=== PATIENT | female | born 1990 | race Asian ===

== ENCOUNTER 2018-11-29 05:34 | Inpatient (IN) | payer BC ==
[~2018-11-29] VITALS: Ht 160 cm; Wt 60.3 kg
[2018-11-29 05:55] VITALS: Ht 160 cm; Wt 60.3 kg
[2018-11-29] MEDS ORDERED: PREN1TAB91 PO (06:00)
[2018-11-29] MEDS ORDERED: OXYTOCIN 30 UNITS/LR 500 ML IV SCH ×2 (06:00→09:55)
[2018-11-29] MEDS ORDERED: FOLI0.4T2 PO (06:00)
[2018-11-29] MEDS ORDERED: MISOPROSTOL 200 MCG TAB PR PRN ×2 (06:00→10:00)
[2018-11-29] MEDS ORDERED: CEFAZOLIN 2 GM/50 ML (PMX) 50 ML IVPB SCH (06:00)
[2018-11-29] MEDS ORDERED: METHYLERGONOVINE 0.2 MG INJ IM PRN ×2 (06:00→10:00)
[2018-11-29] MEDS ORDERED: CARBOPROST 250 MCG INJ IM PRN ×2 (06:00→10:00)
[2018-11-29] MEDS ORDERED: OXYTOCIN 30 UNITS/LR 500 ML IV PRN ×2 (06:00→10:00)
[2018-11-29] MEDS ORDERED: CITRACAL PO (06:07)
[2018-11-29] MEDS: LACTATED RINGER'S 1,000 ML IV SCH ×3 (06:25→22:51)
--- NOTE | 2018-11-29 08:16 | PREAC ---
Date/Time of Note Date/Time of Note DATE: 11/29/18 TIME: 08:15 Anesthesia Eval and Record Evaluation Time Pre-Procedure Interview DATE: 11/29/18 TIME: 08:15 Age 28 Sex female NPO: 8 hrs Preoperative diagnosis BREECH iup Planned procedure C SECTION Past Medical History Past Medical History: Includes : : (1) Surgery & Anesthesia Issues No known issue Meds Anticoagulation: No Beta Han within 24 hr: No Reason Beta Han not given: Pt. not on B-Han Reported Medications Calcium Citrate* (Citracal*) 950 Mg Tab, 950 MG PO DAILY, TAB 11/29/18 Folic Acid* (Folic Acid*) 0.4 Mg Tablet, 0.4 MG PO DAILY, TAB 11/29/18 Pnv95/Ferrous Fumarate/FA ( Formula Tablet) 1 Each Tablet, 1 EACH PO DAILY, TAB 11/29/18 Current Medications Lactated Ringer's 1,000 ml @ 125 mls/hr Q8H IV Last administered on 11/29/18at 07:11; Admin Dose 125 MLS/HR; Start 11/29/18 at 05:56 Cefazolin Sodium/ Dextrose 50 ml @ 100 mls/hr ONCE IVPB ; Start 11/29/18 at 06 :00 Oxytocin/Lactated Ringer's 500 ml @ 125 mls/hr POST IV ; Start 11/29/18 at 06:00 Oxytocin/Lactated Ringer's 500 ml @ 0 mls/hr ONCE PRN IV .VAGINAL BLEEDING; Start 11/29/18 at 06:00 Methylergonovine Maleate (Methergine) 0.2 mg ONCE PRN IM .VAGINAL BLEEDING; Start 11/29/18 at 06:00 Carboprost Tromethamine (Hemabate) 250 mcg ONCE PRN IM .VAGINAL BLEEDING; Start 11/29/18 at 06:00 Misoprostol (Cytotec) 1,000 mcg ONCE PRN IA .VAGINAL BLEEDING; Start 11/29/18 at 06:00 Meds reviewed: Yes Allergies Coded Allergies: No Known Allergy (Unverified , 11/29/18) Allergies Reviewed: Yes Labs/Studies Labs Reviewed: Reviewed by anesthesiologist Result Diagram: 11/29/18600 Laboratory Tests 11/29/18 06:01 Blood Bank Test 11/29/18 06:01 Antibody Screen NEGATIVE Blood Type A POSITIVE Rh Immune Globulin Candidate NO test: Positive Studies: ECG (N/A), CXR (N/A) Pre-procedure Exam Airway: Adequate mouth opening Mallampati: Mallampati I Teeth: Normal Lung: Normal Heart: Normal ASA Physical Status ASA physical status: 3 Emergency: None Planned Anesthetic Neuraxial: Epidural Pre-operative Attestations Prior to commencing anesthesia and surgery, the patient was re-evaluated, there was verification of: *The patient's identity *The results of appropriate recent lab work and preoperative vital signs *The above evaluation not changing prior to induction *Anesthetic plan, risk benefits, alternative and complications discussed with pa tient/family; questions answered; patient/family understands, accepts and wishes to proceed. GAIL MANRIQUEZ MD Nov 29, 2018 08:16
[2018-11-29] MEDS ORDERED: CITRIC ACID/NA CITRATE 30 ML CUP PO ONE (08:30)
[2018-11-29] MEDS ORDERED: morphine SULFATE/PF (10 MG/10 ML) INJ ONE (08:39)
[2018-11-29] MEDS ORDERED: KETOROLAC 30 MG INJ ONE ×2 (08:39→09:30)
[2018-11-29] MEDS ORDERED: METOCLOPRAMIDE 10 MG INJ ONE (08:39)
[2018-11-29] MEDS ORDERED: OXYTOCIN 30 UNITS/LR 500 ML IV ONE ×2 (08:39→09:51)
[2018-11-29] MEDS ORDERED: ONDANSETRON 4 MG INJ ONE (08:39)
[2018-11-29] MEDS ORDERED: EPHEDrine SULFATE 50 MG/5 ML SYG ONE (09:04)
[2018-11-29] MEDS ORDERED: FENTAnyl 50 MCG/ML VIAL ONE (09:30)
[2018-11-29] MEDS ORDERED: LANOLIN HPA 1 PKT TOP PRN (10:00)
[2018-11-29] MEDS ORDERED: OXYCODONE/ACETAMINOPHEN (5/325) TAB PO PRN (10:00)
[2018-11-29] MEDS ORDERED: NACL 0.9% 3 ML SYG IV SCH (10:00)
--- NOTE | 2018-11-29 10:01 | OPR ---
Operative Report Planned Procedure Procedure date Nov 29, 2018 Procedure(s) Primary Performed by see signature line Front Office Attendant: RAJAT BENDER MD Anesthesiologist: GAIL MANRIQUEZ MD Pre-procedure diagnosis IUP at 39w 4d. Breech [id number] Anesthesia Type: Fbazr4m spinal Post-Procedure Post-procedure diagnosis Same with a complete uterine septum. Findings Viable baby girl weighing 3020 grams or 6# 11 oz, 19.5" long, and with Apgars of 9/9, Estimated Blood Loss: 400 - 500 mls Specimen(s) none Grafts/Implant(s) none Complication(s) none Pt Condition post procedure: stable Disposition: PACU Procedure Description Under satisfactory spinal anesthesia, the patient was prepped and draped and placed in a supine position, tilted to the left. Pfannenstiel incision was made, carried through the subcutaneous tissue. Bleeders brought under control with electrocautery. Fascia incised to the length of the incision. Rectus muscles from the fascia, divided midline. Peritoneum exposed, entered through a transverse incision. Transverse incision was made in the lower segment of the uterus. Amniotic sac ruptured. Clear amniotic fluid noted. Legs were delivered first until the buttocks could be delivered. The baby was then delivered to the shoulders and the arms were delivered. The head was delivered easily with fundal pressure. The mouth and nares were bulb suctioned. The cord was doubly clamped and cut. The baby was brought to the warmer and the team for immediate attention. A cord blood collection was then collected using sterile technique with only a small amount of blood retrieved. The placenta was delivered manually intact and the traditional cord blood was then collected. The uterus was wrapped estela moist lap and the uterine cavity was cleaned with a dry lap. Uterus closed in 2 layers using #1 chromic in continuous fashion. Peritoneal cavity irrigated with warm saline. Sponge, needle and instrument count reported to be correct. Abdominal peritoneum closed with 2-0 Chromic continuously. Rectus muscle approximated with the same suture. Fascia closed with 0-Vicryl. The subcutaneous tissue was irrigated and closed with 2-0 Chromic and skin was closed with 3-0 Monocryl in a subcuticular stitch. Steristrips with Mastosol were placed. Estimated blood loss 500 mL. Urine was clear. BARBARA MILLS MD Nov 29, 2018 10:01
[2018-11-29] MEDS ORDERED: KETOROLAC 30 MG INJ IV PRN (10:30)
[2018-11-29] MEDS ORDERED: ONDANSETRON 4 MG INJ IV PRN ×2 (10:30)
[2018-11-29] MEDS ORDERED: DIPHENHYDRAMINE 50 MG INJ IV PRN ×2 (10:30)
[2018-11-29] MEDS ORDERED: NALOXONE (0.4 MG/ML) INJ IV PRN (10:30)
[2018-11-29] MEDS ORDERED: FENTAnyl 50 MCG/ML VIAL IV PRN ×3 (10:30)
[2018-11-29] MEDS ORDERED: morphine 2 MG INJ IV PRN ×3 (10:30)
[2018-11-29] MEDS ORDERED: morphine (1 MG/ML) 10ML SYRINGE IV PRN ×3 (10:30)
[2018-11-29 13:00] VITALS: BP 95/53; PULSE 65; RESP 18
[2018-11-29 14:30] VITALS: BP 101/58; PULSE 69; RESP 12
--- NOTE | 2018-11-29 14:54 | HP ---
Date/Time of Note Date/Time of Note DATE: 11/29/18 TIME: 14:51 OB - History Hx of Present Free Text/Dictation 28 y.o. G1 with an IUP at 40w 4d with a baby in persistent breech and a known uterine septum. The baby is very clearly on the left side. She has a scheduled primary today. Last Menstrual Period: Feb 25, 2018 Estimated Due Date: Dec 02, 2018 : 1 Para: 0 Care: Good Care Ultrasounds: Normal mid trimester US Obstetrical Complications: None Medical Complications: None Other Concerns: PMHx: none. PSHx: none. NKDA. Past Family/Social History * Past Medical, Surgical, Family and Obstetric Histories reviewed from chart. Blood Type: A+ Rubella: immune RPR/VDRL: Negative GBS Status: Positive HBsAG: Negative OB Admission Exam Vital Signs Vital Signs Vital Signs Date Temp Pulse Resp B/P (MAP) Pulse Ox O2 O2 Flow FiO2 Time Delivery Rate 11/29/18 98.2 65 18 95/53 (67) Room Air 13:00 Physical Exam HEENT: WNL Heart: Rhythm Normal Lungs: Clear Abdomen: WNL Extremities: Normal Reflexes: Normal Cervical Dilatation: None Effacement: 50% Station: -2 Membranes: Intact Amniotic Fluid: Clear Heart Rate: 140's Decelerations: No Decelerations Varibility: Moderate Contractions on Admission: >10 Minutes Apart Intensity: Mild Last 72 hours Lab Results CBC & BMP 11/29/18 06:01 OB Assessment/Plan Reason for admission: section Other Assessment: Breech Plan: Section BARBARA MILLS MD Nov 29, 2018 14:54
[2018-11-29 16:00] VITALS: BP 103/54; PULSE 70; RESP 16
[2018-11-29] MEDS: KETOROLAC 30 MG INJ IV PRN (18:06)
[2018-11-29 19:50] VITALS: BP 98/59; PULSE 65; RESP 19
--- NOTE | 2018-11-30 01:00 | PAC ---
Date/Time of Note Date/Time of Note DATE: 11/30/18 TIME: 01:00 Post-Anesthesia Notes Post-Anesthesia Note Last documented vital signs Vital Signs Date Temp Pulse Resp B/P (MAP) Pulse Ox O2 O2 Flow FiO2 Time Delivery Rate 11/29/18 98.8 65 19 98/59 (72) 97 Room Air 19:50 Activity: WNL Respiratory function: WNL Cardiovascular function: WNL Mental status: Baseline Pain reasonably controlled: Yes Hydration appropriate: Yes Nausea/Vomiting absent: No GAIL MANRIQUEZ MD Nov 30, 2018 01:00
--- NOTE | 2018-11-30 01:05 | OPPN ---
Date/Time of Note Date/Time of Note DATE: 11/30/18 TIME: 01:03 Anesthesia Follow up Anesthesia Follow up Last documented vital signs Vital Signs Date Temp Pulse Resp B/P (MAP) Pulse Ox O2 O2 Flow FiO2 Time Delivery Rate 11/29/18 98.8 65 19 98/59 (72) 97 Room Air 19:50 Respiratory function: WNL Cardiovascular function: WNL Comments A 28 year old female s/p spinal , duramorph for post op pain, POD# 1 is doing fine. Pain is controlled, no itching, headache, N/V, neural deficit. GAIL MANRIQUEZ MD Nov 30, 2018 01:05
[2018-11-30 04:00] VITALS: BP 100/58; PULSE 63; RESP 19
[2018-11-30] MEDS: LACTATED RINGER'S 1,000 ML IV SCH (04:51)
[2018-11-30] MEDS: KETOROLAC 30 MG INJ IV PRN (04:51)
[2018-11-30 07:40] VITALS: BP 118/70; PULSE 70; RESP 18
[2018-11-30] MEDS: IBUPROFEN 800 MG TAB PO SCH ×2 (14:28→21:51)
[2018-11-30 16:10] VITALS: BP 96/48; PULSE 61; RESP 18
[2018-11-30 19:30] VITALS: BP 91/55; PULSE 70; RESP 18
--- NOTE | 2018-11-30 22:12 | QN ---
Documentation Comment POD#1 Pt feels well. Just got up to walk for the 1st time and it was slow going. w/o difficulty. +flatus but no BM. T=98.3 BP 91/55 Fundus firm. Dressing clean, dry and intact. Lochia minimal. Ext NT, no edema. WBC 11.5 Hgb 11.1 Plts 205 P: Continue care. Advance diet to regular tomorrow. Plan d/c 12/02. BARBARA MILLS MD Nov 30, 2018 22:12
[2018-12-01 04:00] VITALS: BP 100/65; PULSE 65; RESP 18
[2018-12-01] MEDS: IBUPROFEN 800 MG TAB PO SCH ×3 (06:32→21:26)
[2018-12-01 08:20] VITALS: BP 101/53; PULSE 72; RESP 18
[2018-12-01] MEDS: OXYCODONE/ACETAMINOPHEN (5/325) TAB PO PRN (14:37)
[2018-12-01 16:15] VITALS: BP 111/59; PULSE 59; RESP 16
[2018-12-01 19:10] VITALS: BP 111/63; PULSE 67; RESP 18
[2018-12-02] MEDS: OXYCODONE/ACETAMINOPHEN (5/325) TAB PO PRN ×2 (00:17→12:32)
[2018-12-02 04:00] VITALS: BP 98/63; PULSE 62; RESP 18
[2018-12-02] MEDS: IBUPROFEN 800 MG TAB PO SCH ×3 (05:28→22:12)
[2018-12-02 09:00] VITALS: BP 106/61; PULSE 66; RESP 18
[2018-12-02] MEDS ORDERED: DIPHTH/TET/ACEL PERTUSS (ADULT) 0.5 ML VIAL IM* ONE (09:00)
[2018-12-02 16:00] VITALS: BP 108/48; PULSE 60; RESP 18
[2018-12-02 19:20] VITALS: BP 109/53; PULSE 60; RESP 18
--- NOTE | 2018-12-02 19:50 | PD.PPDC ---
TOOTH CUTTER CONTACT WHEEL Discharge Instruction Condition Csacc2Pr Patient Condition: Txnaz2r Good Diet Lzfaq4Pc Diet: Ndugn4j Resume Regular Diet Activity/Restrictions Rmlar0Oi Activity: Quvat9t Bedrest May be up to bathroom May be up for meals May Shower [id number] Restrictions: [id number] No Exercising No Lifting No Driving Minimize Walking Minimize Stair-climbing No Sexual Activity Nothing in the Vagina No [place] No Tampons, douche Wound/Drain Care Instructions [id number] Wound/Drain Care Hfasr3e Remove Steri Strips in 2 Instructions: weeks Keep clean and dry Follow-up Follow-up with Physician: 2, Week/Weeks Return to clinic for [id number] CLAIMS ADJUSTOR Instructions: Qawur4d Fever greater than 101 Chills Worsening abdominal pain Excessive Vaginal Bleeding [id number] OB Instructions: Wlqwa2s Breast Tenderness Depression [id number] Surgical Instructions: Nqrmm4y Incisional Drainage Incisional Redness BARBARA MILLS MD Dec 02, 2018 19:50
[2018-12-02] MEDS ORDERED: IBUP800T48 PO (19:51)
[2018-12-02] MEDS ORDERED: OXYC-438 PO (19:51)
--- NOTE | 2018-12-02 19:54 | DS ---
Date/Time of Note Date/Time of Note DATE: 12/02/18 TIME: 19:52 Obstetrical Discharge Record Final Diagnosis Final Diagnosis: Term delivered Other Final Diagnosis BREECH Section Section: Primary Primary Indication BREECH Complications Other (BREECH) Augmentation: No Induction: No Condition on Discharge Physical Assessment Last Vitals: T=98.7 BP 106/61 Voiding: Yes Bowel Movement: Yes Breast: Filling Fundus: Firm Abdomen and Incision: Clean, intact, dry with steristrips present. Calf Tenderness: No Patient Condition: Good BARBARA MILLS MD Dec 02, 2018 19:54
[2018-12-03] MEDS: OXYCODONE/ACETAMINOPHEN (5/325) TAB PO PRN ×2 (00:16→07:00)
[2018-12-03 04:00] VITALS: BP 98/63; PULSE 62; RESP 18
[2018-12-03] MEDS: IBUPROFEN 800 MG TAB PO SCH (06:07)
[2018-12-03 08:15] VITALS: BP 100/51; PULSE 63; RESP 16
--- NOTE | 2018-12-04 14:36 | DELSUM ---
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 Babies in Womb: 1 Attempted: No LABOR INFORMATION Reason for Induction: Not Applicable Oxytocin: N/A Group B Beta Strep: Positive Antibiotics # of Doses: 1 Steroids Given: None Reason Steroids Not Administered: Not Applicable MEMBRANES Membranes Rupture Method: Artificial Rupture of Membranes: 11/29/2018 09:12 Length of Rupture (hr): 0.02 Amniotic Fluid Color: Clear Amniotic Fluid Amount: None Amniotic Fluid Odor: Normal STAGES OF LABOR Stage 3 hr: 0 Stage 3 min: 1 VAGINAL DELIVERY Episiotomy: None Laceration Extension: N/A Laceration Type: None CSECTION DELIVERY Primary Indication: Breech Presentation CSection Urgency: Elective CSection Incidence: Primary Labor: No Labor Elective: Elective CSection Incision: Lower Uterine Transverse BABY A INFORMATION Delivery Date/Time: 11/29/2018 09:13 Method of Delivery: Born in Route : No : N/A Forceps: N/A Vacuum Extraction: N/A Shoulder Dystocia : No SHOULDER DYSTOCIA BABY A Infant Delivery Date/Time: 11/29/2018 09:13 PRESENTATION/POSITION BABY A Presentation: Breech Cephalic Presentation: N/A Breech Presentation: Double Footling PLACENTA INFORMATION BABY A Placenta Delivery Time : 11/29/2018 09:14 Placenta Method of Delivery: Manual Removal Placenta Status: Delivered SCORES BABY A Heart Rate 1 min: >100 bpm Resp Effort 1 min: Good Cry Reflex Irritability 1 min: Cough/Sneeze/Pulls Away Muscle Tone 1 min: Active Motion Color 1 min: Body [place], Extremit Blue Resuscitation Effort 1 min: Tactile Stimulation SCORE 1 MIN: 9 Heart Rate 5 min: >100 bpm Resp Effort 5 min: Good Cry Reflex Irritability 5 min: Cough/Sneeze/Pulls Away Muscle Tone 5 min: Active Motion Color 5 min: Body [place], Extremit Blue SCORE 5 MIN: 9 INFANT INFORMATION BABY A Gestational Age at Delivery: 39.4 Gestational Status: Full Term- 39- 40.6 Weeks Infant Outcome : Liveborn Infant Condition : Stable Infant Sex: Female IDENTIFICATION/MEDS BABY A ID Band Number: [id number] ID Band Location: Right Leg; Left Arm Sensor Applied: Yes Sensor Number: [id number] Sensor Location : Cord Clamp Vitamin K Given : Not Given Erythromycin Given: Not Given WEIGHT/LENGTH BABY A Birthweight (gm): 3020 Weight (lb): 6 Infant Weight (oz): 11 Infant Length (in): 19.50 Length (cm): 49.53 CORD INFORMATION BABY A No. Cord Vessels: 3 Nuchal Cord : N/A Cord Blood Taken: Yes Suction: Mouth; Nose ASSESSMENT BABY A Complications: None Physical Findings at Delivery: Within Normal Limits Infant Respirations: Appears Normal Filter Screen Cleaner/ALS Called : No Transferred To: Remains with Mother
== END 2018-12-03 14:36 | disposition home or self-care (01) | DRG 788 ==
LOC: L-D 05:34 → PP1 12:36
PROVIDERS: ADMIT Obstetrics & Gynecology; ATTEND Obstetrics & Gynecology
PROC: 10D00Z1 Extraction of Products of Conception, Low, Open Approach (ICD-10-PCS; principal; 2018-11-29 07:30)
DX: O32.1XX0 Maternal care for breech presentation, not applicable or unspecified (principal); O34.03 Maternal care for unspecified congenital malformation of uterus, third trimester; Q51.20 Other doubling of uterus, unspecified; Z3A.40 40 weeks gestation of pregnancy; Z37.0 Single live birth
CPT/HCPCS: 76815; 85025; 85610; 85730; 86592; 86850; 86900; 86901; 87340; 99464; J0690; J1200; J1885; J2274; J2405; J2590; J2765; J3010; J7120